=== PATIENT | female | born 1995 | race Caucasian/White ===

== ENCOUNTER 2019-05-06 02:17 | Inpatient (IN) | payer BC, MEDICAID ==
[2019-05-06] VITALS (41 sets, daily range): BP systolic 77–115; BP diastolic 51–85
[~2019-05-06] VITALS: Ht 169 cm; Wt 68.0 kg
--- NOTE | 2019-05-06 05:43 | NUR ---
ADAIR BRAVO presented to unit via ambulatory from ED, accompanied by , with c/o INDUCTION. ADAIR BRAVO weighed, gowned, voided, and to bed. EFHM and TOCO applied, VS taken. ADAIR BRAVO oriented to bed controls, call light, TV, heat, and A/C controls.
--- NOTE | 2019-05-06 07:00 | NUR ---
ctx noted q 2-8 min. duration 60-180 sec. mild to palpation. pt states is feeling ctx. fhr 130. moderate variability. accels present. few variables noted.
[2019-05-06] MEDS ORDERED: D5 LR IV SOLUTION 1,000 ML IV ONE (07:05)
[2019-05-06] MEDS ORDERED: WATER (STERILE) FOR INJECTION 20 ML ONE (07:05)
[2019-05-06] MEDS ORDERED: AMPICILLIN FOR IV USE 2,000 MG VIAL ONE (07:05)
--- NOTE | 2019-05-06 07:10 | NUR ---
report from Ashwin jones Rn.
[2019-05-06] MEDS ORDERED: CLINDAMYCIN 900 MG/50 ML IVPB 50 ML IV ONE (07:23)
[2019-05-06] MEDS ORDERED: OXYTOCIN/NORMAL SALINE 500 ML IV SCH ×2 (07:38→14:53)
[2019-05-06 07:45] LABS: BASOPHILS % (AUTO) 0 % (0-10); EOSINOPHILS # (AUTO) 0.1 10^3/uL (0.0-0.3); EOSINOPHILS % (AUTO) 1 % (0-10); HEMATOCRIT 32 % (35-52); HEMOGLOBIN 10.3 G/DL (11.5-16.0); LYMPHOCYTES # (AUTO) 1.9 X 10^3 (1.0-4.0); LYMPHOCYTES % (AUTO) 17 % (12-44); MEAN CORPUSCULAR HEMOGLOBIN 26 PG (25-34); MEAN CORPUSCULAR HGB CONC 32 G/DL (32-36); MEAN CORPUSCULAR VOLUME 81 FL (80-99); MEAN PLATELET VOLUME 9.5 FL (7.4-10.4); MONOCYTES # (AUTO) 0.8 X 10^3 (0.0-1.0); MONOCYTES % (AUTO) 8 % (0-12); NEUTROPHILS # (AUTO) 8.2 X 10^3 (1.8-7.8); NEUTROPHILS % (AUTO) 74 % (42-75); PLATELET COUNT 276 10^3/uL (130-400); WHITE BLOOD COUNT 11.1 10^3/uL (4.3-11.0)
[2019-05-06] MEDS ORDERED: MINERAL OIL CONCENTRATE 99.9% 15 ML UDC TOP PRN (07:45)
[2019-05-06] MEDS ORDERED: SUFENTA 0.6MCG/ML BUPIVA 0.125 100 ML ONE (08:03)
[2019-05-06] MEDS ORDERED: fentaNYL INJECTION 100 MCG/2 ML AMP ONE (08:41)
--- NOTE | 2019-05-06 08:53 | History & Physical-OB/GYN ---
History of Present Illness History of Present Illness Reason for visit/HPI Ms. Aldrich was admitted to Labor & Delivery for Pitocin Induction of labor at 39 weeks gestation. Date of Admission May 06, 2019 at 05:22 Date Seen by a Provider: May 06, 2019 Time Seen by a Provider: 07:50 I consulted on this patient on 05/06/19 08:47 Attending Physician Gagandeep Christie DO Admitting Physician Gagadneep Christie DO Consult Allergies and Home Medications Allergies Coded Allergies: Penicillins (Verified Allergy, Unknown, 05/06/19) Patient Home Medication List Home Medication List Reviewed: Yes Past Yshogqn-Taycbh-Poikqo Hx Patient Social History Marrital Status: single Number of Children: 3 Number of living children: 3 Employed/Student: employed Alcohol Use: Denies Use Recreational Drug Use: No Smoking Status: Never a Smoker Recent Foreign Travel: No Contact w/other who traveled: No Seasonal Allergies Seasonal Allergies: No Cardiovascular No Neurological No Reproductive System : Yes Expected Date of Delivery: May 13, 2019 Last Menstrual Period: May 06, 2019 Hx : 4 Hx Para: 3 Hx Total # of Abortions (Spona: 0 Hx Reproductive Disorders: No Sexually Transmitted Disease: No HIV/AIDS: No Female Reproductive Disorders: Denies Genitourinary No Gastrointestinal No Musculoskeletal No Endocrine History of Endocrine Disorders: No HEENT History of HEENT Disorders: No Loss of Vision: Denies Hearing Impairment: Denies Cancer No Review of Systems Constitutional: see HPI EENTM: see HPI; No ear pain Respiratory: see HPI; No dyspnea on exertion Cardiovascular: see HPI Gastrointestinal: see HPI Genitourinary: see HPI : Yes Expected Date of Delivery: May 13, 2019 Control/STD Prophylaxis: None Musculoskeletal: see HPI Skin: see HPI Psychiatric/Neurological: Anxiety Physical Exam Physical Exam Vital Signs Vital Signs Date Time Temp Pulse Resp B/P (MAP) Pulse Ox O2 Delivery O2 Flow Rate FiO2 05/06/19 06:11 36.6 77 18 101/59 (73) Capillary Refill : Labs Laboratory Tests 05/06/19 06:39: White Blood Count 11.1H, Red Blood Count 3.99L, Hemoglobin 10.3L, Hematocrit 32L , Mean Corpuscular Volume 81, Mean Corpuscular Hemoglobin 26, Mean Corpuscular Hemoglobin Concent 32, Red Cell Distribution Width 14.0, Platelet Count 276, Mean Platelet Volume 9.5, Neutrophils (%) (Auto) 74, Lymphocytes (%) (Auto) 17, Monocytes (%) (Auto) 8, Eosinophils (%) (Auto) 1, Basophils (%) (Auto) 0, Neutrophils # (Auto) 8.2H, Lymphocytes # (Auto) 1.9, Monocytes # (Auto) 0.8, Eosinophils # (Auto) 0.1, Basophils # (Auto) 0.0 General Appearance: WD/WN Respiratory: Chest Non Tender, Lungs Clear, Normal Breath Sounds Cardiovascular: Regular Rate, Rhythm Abdominal: normal bowel sounds, non tender Gynecology/General: No urethral discharge, No lesions Labia: WNL Vagina: WNL Cervix: WNL Uterus: Enlarged (Gravid) Extremity: Normal Inspection, Normal Range of Motion, Non Tender Assessment/Plan Assessment and Plan Assessment: Intrauterine at 39 weeks 2. GBS Positive Plan: Pitocin Induction of Labor. Artificial Rupture of Membranes. Epidural Anesthesia. IV antibiotics (Cleocin). I expect a normal spontaneous vaginal delivery. Admission Diagnosis Admission Status: Inpatient Order (span 2 midnights) Reason for Inpatient Admission: Pitocin Induction of Labor at 39 weeks Clinical Quality Measures DVT/VTE Risk/Contraindication: Risk Factor Score Per Nursin RFS Level Per Nursing on Admit: 1=Low/No VTE GAGANDEEP EDDY DO May 06, 2019 08:53
[2019-05-06] MEDS ORDERED: BUPIVACAINE 0.25% 30 ML (SENSORCAINE) VIAL ONE (09:11)
[2019-05-06] MEDS: D5 LR IV SOLUTION 1,000 ML IV SCH ×2 (13:16→17:01)
[2019-05-06] MEDS ORDERED: CLINDAMYCIN 900 MG/50 ML IVPB 50 ML IV SCH (14:00)
[2019-05-06] MEDS ORDERED: CATHETER FLUSH 10 ML SYR IV SCH ×2 (14:00→22:00)
--- NOTE | 2019-05-06 14:57 | OB Labor & Delivery Record ---
Vag Delivery Note Vag Delivery Note Date of Delivery: 05/06/19 Preoperative Diagnosis: Gabriela Aldrich is a (23 /Para 4 / 3,Gestational Age (wks)39with [] Postoperative Diagnosis: Same Surgeon: MARCELINO HUIZAR [employer] Blasting: [None] Anesthesia: [Epidural] Delivery Type: [Normal Spontaneous Vaginal Delivery] Findings: [] Viable [Male] infant, apgars [], weight [] Lacerations: Second degree perineal laceration Intact placenta with 3 vessel cord. No nuchal cord, body cord or shoulder dystocia Estimated Blood Loss: [300] ml Complications: None Condition: Stable Description of Procedure: The patient is a 23 year old female who presented [for Pitocin Induction of Labor]. She was admitted and informed consent was obtained. Her labor course was unremarkable. She progressed to complete dilatation and began to push. She was then set up for delivery. The infant's head was delivered atraumatically in the [RADHA] position. The shoulders and remainder of the 's body were then delivered without difficulty. Upon delivery, the head was held below the level of the perineum and the mouth and nares were bulb suctioned. The cord was doubly clamped and cut and the infant was handed off to the pediatric staff where NRP protocol was followed. An intact placenta with 3-vessel cord delivered via Shantal and there was found to be minimal bleeding.~ Vigorous fundal massage was performed and the fundus was found to be firm. IV oxytocin was given. Examination of the vagina and perineum revealed a [second degree perineal] laceration repaired in the usual fashion with 3-0 vicryl suture. Following the repair, sponge, instrument and needle counts were correct. Mom and baby were both in stable condition in the labor suite. Vitals - Labs Vital Signs - I&O Vital Signs Date Time Temp Pulse Resp B/P (MAP) Pulse Ox O2 Delivery O2 Flow Rate FiO2 05/06/19 14:00 90 18 103/56 (72) Room Air 05/06/19 13:45 105 18 99/57 (71) Room Air 05/06/19 13:30 96 18 104/58 (73) 96 Room Air 05/06/19 13:15 85 18 101/59 (73) 96 Room Air 05/06/19 13:00 91 18 99/53 (68) 96 Room Air 05/06/19 12:45 93 18 98/55 (69) 96 Room Air 05/06/19 12:30 87 18 88/52 (64) 94 Room Air 05/06/19 12:15 78 18 95/52 (66) 96 Room Air 05/06/19 12:00 78 18 98/57 (71) 96 Room Air 05/06/19 11:45 95 18 99/51 (67) 96 Room Air 05/06/19 11:30 93 18 82/53 (63) 96 Room Air 05/06/19 11:15 85 18 89/51 (64) 96 Room Air 05/06/19 11:00 98 18 77/52 (60) 97 Room Air 05/06/19 10:45 36.5 78 18 84/52 (63) 94 Room Air 05/06/19 10:30 90 18 97/56 (70) 98 Room Air 05/06/19 10:15 100 18 90/60 (70) 97 Room Air 05/06/19 10:00 91 18 93/55 (68) 97 Room Air 05/06/19 09:50 77 18 96/57 (70) 97 Room Air 05/06/19 09:45 93 18 87/57 (67) 93 Room Air 05/06/19 09:40 93 18 99/51 (67) 96 Room Air 05/06/19 09:35 88 18 112/73 (86) 96 Room Air 05/06/19 09:30 83 18 97/57 (70) 97 Room Air 05/06/19 09:25 96 20 95/54 (68) 97 Room Air 05/06/19 09:20 102 20 96/53 (67) 97 Room Air 05/06/19 09:15 85 20 96/59 (71) 97 Room Air 05/06/19 09:08 92 18 101/66 (78) 98 Room Air 05/06/19 09:05 93 18 105/68 (80) 98 Room Air 05/06/19 09:00 101 18 107/68 (81) 98 Room Air 05/06/19 08:55 99 18 112/71 (85) 99 Room Air 05/06/19 08:50 105 18 107/70 (82) 99 Room Air 05/06/19 08:35 82 18 98/59 (72) 05/06/19 08:20 91 18 97/54 (68) 1/10/20 08:05 36.4 110 18 94/54 (67) 05/06/19 06:11 36.6 77 18 101/59 (73) Labs Laboratory Tests 05/06/19 06:39: White Blood Count 11.1H, Red Blood Count 3.99L, Hemoglobin 10.3L, Hematocrit 32L , Mean Corpuscular Volume 81, Mean Corpuscular Hemoglobin 26, Mean Corpuscular Hemoglobin Concent 32, Red Cell Distribution Width 14.0, Platelet Count 276, Mean Platelet Volume 9.5, Neutrophils (%) (Auto) 74, Lymphocytes (%) (Auto) 17, Monocytes (%) (Auto) 8, Eosinophils (%) (Auto) 1, Basophils (%) (Auto) 0, Neutrophils # (Auto) 8.2H, Lymphocytes # (Auto) 1.9, Monocytes # (Auto) 0.8, Eosinophils # (Auto) 0.1, Basophils # (Auto) 0.0 MARCELINO HUIZAR DO May 06, 2019 14:57
[2019-05-06] MEDS ORDERED: WITCH HAZEL(TUCKS) 40 EA JAR TOP PRN (15:00)
[2019-05-06] MEDS ORDERED: DIBUCAINE (NUPERCAINAL) 1% OINT 30 GM TOP PRN (15:00)
[2019-05-06] MEDS ORDERED: TETANUS,DIPTH,PERTUSS P/F (BOOSTRIX) 0.5 ML VIAL IM ONE (15:00)
[2019-05-06] MEDS ORDERED: MEASLES,MUMPS,RUBELLA 1 EA INJ SQ ONE (15:00)
[2019-05-06] MEDS ORDERED: BENZOCAINE/MENTHOL (DERMOPLAST) 60 ML CAN TP PRN (15:00)
--- NOTE | 2019-05-06 15:30 | NUR ---
fundal massage, moderate clot expressed. light to moderate flow noted. 1st bag of pitiocin infused. new pad and underwear to perineum. repositioned in bed. epidural catheter removed. tip intact.
[2019-05-06] MEDS: IBUPROFEN 800 MG (MOTRIN) TAB PO SCH (15:47)
[2019-05-06] MEDS: ACETAMINOPHEN 500 MG TAB (TYLENOL) PO SCH ×2 (15:47→23:02)
--- NOTE | 2019-05-06 16:30 | NUR ---
Patient transferred to room 311 per Rae Jamison RN. Report received and care of patient assumed.
--- NOTE | 2019-05-06 17:00 | NUR ---
Patient assisted up to restroom. Patient unable to void at this time. Pericare reviewed. Patient ambulated back to bed without difficulty.
--- NOTE | 2019-05-06 19:15 | NUR ---
REPORT RECEIVED AND CARES RESUMED BY THIS NURSE.
--- NOTE | 2019-05-06 21:15 | NUR ---
INITIAL SHIFT ASSESSMENT DONE. VSS. PT DENIES ANY NEEDS.
[2019-05-06] MEDS: DOCUSATE SODIUM 100 MG (COLACE) CAP PO SCH (21:20)
--- NOTE | 2019-05-06 23:00 | NUR ---
SCHEDULED TYLENOL GIVEN. PT WITH INFANT IN ARMS. PT DENIES ANY NEEDS AT THIS TIME .
[2019-05-07] MEDS: IBUPROFEN 800 MG (MOTRIN) TAB PO SCH ×2 (02:10→12:35)
[2019-05-07 02:35] VITALS: BP 97/55
--- NOTE | 2019-05-07 02:35 | NUR ---
MOTRIN GIVEN. INFANT TO [facility] FOR BATH AND WEIGHT.
--- NOTE | 2019-05-07 03:15 | NUR ---
INFANT RETURNED TO PT'S ROOM. PT DENIES ANY NEEDS OR C/O'S AT THIS TIME.
[2019-05-07] MEDS ORDERED: PRENATAL VITAMIN 1 EA TAB PO SCH (07:00)
[2019-05-07 07:13] LABS: BASOPHILS % (AUTO) 0 % (0-10); EOSINOPHILS # (AUTO) 0.1 10^3/uL (0.0-0.3); EOSINOPHILS % (AUTO) 1 % (0-10); HEMATOCRIT 31 % (35-52); HEMOGLOBIN 9.8 G/DL (11.5-16.0); LYMPHOCYTES # (AUTO) 2.1 X 10^3 (1.0-4.0); LYMPHOCYTES % (AUTO) 18 % (12-44); MEAN CORPUSCULAR HEMOGLOBIN 26 PG (25-34); MEAN CORPUSCULAR HGB CONC 31 G/DL (32-36); MEAN CORPUSCULAR VOLUME 82 FL (80-99); MEAN PLATELET VOLUME 9.6 FL (7.4-10.4); MONOCYTES % (AUTO) 9 % (0-12); NEUTROPHILS # (AUTO) 8.3 X 10^3 (1.8-7.8); NEUTROPHILS % (AUTO) 72 % (42-75); PLATELET COUNT 256 10^3/uL (130-400); RED CELL DISTRIBUTION WIDTH 13.9 % (10.0-14.5); WHITE BLOOD COUNT 11.5 10^3/uL (4.3-11.0)
--- NOTE | 2019-05-07 07:15 | NUR ---
REPORT TO ONCOMING SHIFT.
[2019-05-07] MEDS: ACETAMINOPHEN 500 MG TAB (TYLENOL) PO SCH ×2 (07:58→15:25)
[2019-05-07] MEDS: DOCUSATE SODIUM 100 MG (COLACE) CAP PO SCH (07:58)
[2019-05-07 08:00] VITALS: BP 99/62
--- NOTE | 2019-05-07 08:00 | NUR ---
A.M. ASSESSMENT COMPLETED. VSS. CARING FOR INFANT IN ROOM. PT AND MOM C/O BABY NOT WANTING TO EAT. THIS RN TRIED TO FEED AND WAS ABLE TO GET INFANT TO TAKE 13 CC FORMULA.
--- NOTE | 2019-05-07 08:30 | NUR ---
INFANT TAKEN TO NURSERY TO BE EVALUATED.
[2019-05-07] MEDS ORDERED: DOCU100C37 PO (09:32)
[2019-05-07] MEDS ORDERED: ACET-93 PO (09:32)
[2019-05-07] MEDS ORDERED: OXC5T PO (09:32)
[2019-05-07] MEDS ORDERED: IBUP-1780 PO (09:32)
--- NOTE | 2019-05-07 09:39 | Discharge Summary ---
Diagnosis/Chief Complaint Date of Admission May 06, 2019 at 05:22 Date of Discharge May 07, 2019 Discharge Date: May 07, 2019 Discharge Time: 15:30 Admission Diagnosis Admission Diagnosis Intrauterine at 39 weeks 2. GBS Positive Discharge Diagnosis Intrauterine at 39 weeks--delivered 2. GBS Positive Reason Hospital Visit Ms. Aldrich was admitted to Labor & Delivery for Pitocin Induction of labor at 39 weeks gestation. Discharge Summary Hospital Course Was the Problem List Reviewed?: Yes Hospital Course Ms. Aldrich was admitted to the hospital for Pitocin Induction of Labor at 39 weeks. She was known to be GBS Positive, consequently, she was started on Cleocin IV immediately--Ms. Aldrich has a Penicillin allergy. She received an Epidural for antepartum pain management. I artificially rupture her membranes. She progressed to complete. After a short course of pushing, she delivered a healthy viable male infant. She sustained a second degree perineal laceration, which was repaired in the normal sterile fashion. The remainder of her hospitalization was unremarkable. Her vital signs remained stable throughout her hospitalization. She will be discharged to home with instructions, prescriptions, and a follow up appointment. Labs Laboratory Tests 05/06/19 06:39: White Blood Count 11.1H, Red Blood Count 3.99L, Hemoglobin 10.3L, Hematocrit 32L , Neutrophils # (Auto) 8.2H 05/07/19 06:42: White Blood Count 11.5H, Red Blood Count 3.81L, Hemoglobin 9.8L, Hematocrit 31L, Neutrophils # (Auto) 8.3H, Mean Corpuscular Hemoglobin Concent 31L Procedures None. Discharge Physical Examination Allergies: Coded Allergies: Penicillins (Verified Allergy, Unknown, 05/06/19) Vitals & I&Os Vital Signs Date Time Temp Pulse Resp B/P (MAP) Pulse Ox O2 Delivery O2 Flow Rate FiO2 05/07/19 02:35 36.4 84 18 97/55 (69) 97 Room Air General Appearance: Alert, Oriented X3, Cooperative HEENT: Atraumatic, PERRLA Respiratory: Clear to Auscultation, Normal Air Movement Cardiovascular: Regular Rate, No Murmurs Abdominal: Normal Bowel Sounds, No Tenderness Extremities: No Clubbing, No Cyanosis Skin: No Rashes Neuro: Normal Gait, Normal Speech Psych/Mental Status: Mental Status NL Discharge Home Medications Reviewed and agree with Discharge Medication list on patient's Discharge Instruction sheet Instructions to Patient/Family Please see electronic discharge instructions given to patient. Clinical Quality Measures DVT/VTE Risk/Contraindication: Risk Factor Score Per Nursin RFS Level Per Nursing on Admit: 1=Low/No VTE PPMARCELINO RANDLE DO May 07, 2019 09:39
--- NOTE | 2019-05-07 10:30 | NUR ---
CARING FOR INFANT IN ROOM. GOOD INTERACTION NOTED.
--- NOTE | 2019-05-07 11:36 | Anesthesia-Regional Post-Op ---
Regional Patient Condition Mental Status: Alert, Oriented x3 Circulation: Same as Pre-Op Headache: Absent Sensation: Full Recovery Motor Block: Absent Post Op Complications Complications None Follow Up Care/Instructions Patient Instructions None needed. Anesthesia/Patient Condition Patient is doing well, no complaints, stable vital signs, no apparent adverse anesthesia problems. No complications reported per nursing. CHOLO WALTON CRNA May 07, 2019 11:36
--- NOTE | 2019-05-07 12:00 | NUR ---
CONTINUES TO DO WELL. OFFERS NO COMPLAINTS. HOPING TO GO HOME TODAY.
[2019-05-07 13:00] VITALS: BP 102/52
--- NOTE | 2019-05-07 13:30 | NUR ---
EATING STORK MEAL WITH HER MOTHER.
[2019-05-07] MEDS ORDERED: FLU QUADRIvalent (5+ YOA) 2019-2020 (AFLURIA) 0.5 ML IM ONE (14:00)
--- NOTE | 2019-05-07 15:00 | NUR ---
WAITING TO SEE IF INFANT GETS TO GO HOME AFTER 24 HOUR SCREENING.
[2019-05-07 16:00] VITALS: BP 90/54
--- NOTE | 2019-05-07 16:35 | NUR ---
DISCHARGE INSTRUCTIONS REVIEWED WITH COPY TO PT. STATES UNDERSTANDING OF ALL INSTRUCTIONS AND NEED TO F/U SCHEDULED AND NEEDED.
[2019-05-07 19:25] VITALS: BP 90/54
--- NOTE | 2019-05-07 19:25 | NUR ---
DISMISSED AMB FROM [facility] WITH INFANT IN STABLE CONDITION TO FAMILY CAR ACC BY PARENTS AND SHANNON PEREA RN.
== END 2019-05-07 19:25 | disposition home or self-care (01) | DRG 807 ==
LOC: LDRP 05:22
PROVIDERS: ADMIT Obstetrics & Gynecology; ATTEND Obstetrics & Gynecology
PROC: 10E0XZZ Delivery of Products of Conception, External Approach (ICD-10-PCS; principal; 2019-05-06)
PROC: 0KQM0ZZ Repair Perineum Muscle, Open Approach (ICD-10-PCS; 2019-05-06)
PROC: 10907ZC Drainage of Amniotic Fluid, Therapeutic from Products of Conception, Via Natural or Artificial Opening (ICD-10-PCS; 2019-05-06)
PROC: 3E033VJ Introduction of Other Hormone into Peripheral Vein, Percutaneous Approach (ICD-10-PCS; 2019-05-06)
DX: O99.824 Streptococcus B carrier state complicating childbirth (principal); Z37.0 Single live birth; Z3A.39 39 weeks gestation of pregnancy; Z23 Encounter for immunization; O70.1 Second degree perineal laceration during delivery
CPT/HCPCS: 36415; 85025; 86850; 86900; 86901; 90715